=== PATIENT | male | born 1985 | race Caucasian/White ===

== ENCOUNTER 2022-01-20 14:12 | Emergency (ER) | payer OTHER ==
[2022-01-20 15:03] LABS: HEMOGLOBIN 13.7 gm/dl (14.0-17.5); RED BLOOD COUNT 4.21 M/UL (4.20-5.50); WHITE BLOOD COUNT 3.9 K/UL (4.5-11.0)
[2022-01-20 15:25] LABS: BUN/CREATININE RATIO 14 (0-10)
== END 2022-01-20 15:40 | disposition home or self-care (01) ==
LOC: ER1 14:12
PROVIDERS: Physician Assistant
DX: R22.33 Localized swelling, mass and lump, upper limb, bilateral (principal); R53.83 Other fatigue; F17.200 Nicotine dependence, unspecified, uncomplicated; Z88.0 Allergy status to penicillin
CPT/HCPCS: 80053; 85025; 99283